=== PATIENT | female | born 1980 | race Caucasian/White ===

== ENCOUNTER 2018-08-14 08:05 | Outpatient (CLI) | payer BC | END 2018-08-14 08:06 | disposition home or self-care (01) | LOC: CARDIO 08:05 | DX: R07.9 Chest pain, unspecified (principal) ==

== ENCOUNTER 2018-10-06 16:21 | Outpatient (CLI) | payer BC | END 2018-10-06 16:22 | disposition home or self-care (01) | LOC: RAD 16:21 ==